=== PATIENT | female | born 1975 ===

== ENCOUNTER 2018-07-03 08:17 | Day surgery (SDC) | payer MEDICAID ==
[2018-06-29 10:25] VITALS: BMI 35.2
[2018-07-03] MEDS ORDERED: Lactated Ringer's 1,000 ML IV ONE (09:31)
[2018-07-03] MEDS ORDERED: Propofol 10 mg/ml Inj (20 ML) ONE (11:01)
[2018-07-03] MEDS ORDERED: cefTRIAXone (Rocephin) 1 gm Inj ONE (11:40)
[2018-07-03] MEDS ORDERED: Iohexol 300 100 ML IJ ONE (11:40)
[2018-07-03] MEDS ORDERED: cefTRIAXone (Rocephin) 1 gm Inj IVPB ONE (11:50)
[2018-07-03] MEDS ORDERED: Dexamethasone 4 mg/1 ml ONE (11:59)
[2018-07-03] MEDS ORDERED: Dexamethasone 4 mg/1 ml IVP PRN (12:18)
[2018-07-03] MEDS ORDERED: Lactated Ringer's 1,000 ML IV SCH (12:30)
[2018-07-03 13:25] VITALS: O2SAT 98
[2018-07-03 14:17] VITALS: RESP 18
[2018-07-03 15:31] VITALS: BP 120/70; PULSE 60; TEMP 98
--- NOTE | 2018-07-05 16:55 | RAD ---
Date of service: 07/03/2018 PROCEDURE: Intraoperative Fluoroscopy. HISTORY: CYSTOSCOPY FINDINGS: Fluoroscopic assistance was provided for cystoscopy and retrograde. Please refer to the operative report from [facility]. Total fluoroscopic time (continuous mode) utilized during the procedure 15.2 (seconds).
--- NOTE | 2018-07-25 22:45 | OP ---
PROCEDURE DATE: 07/03/2018 PREOPERATIVE DIAGNOSIS: Evaluation for right hydronephrosis. POSTOPERATIVE DIAGNOSES: Patent right renal unit, stable hydronephrosis. PROCEDURE PERFORMED ON THE PATIENT: Cystoscopy with right ureteroscopy and right retrograde pyelogram. SURGEON: Cathryn Arteaga MD DESCRIPTION OF PROCEDURE: The patient was placed on the operating room table in a dorsal lithotomy position, given general anesthesia. The area of the groin was draped and prepped in a sterile manner. At this time, using a 21 cystoscope, I entered into the bladder atraumatically. I identified the right ureteral orifice and proceeded to insert a cone-tip catheter at the lower end of the ureter. I did a retrograde pyelogram and the ureter fills out nicely. There is no significant swelling of the ureter. At the level of the renal pelvis, I could see that there was an accumulation of contrast in the area of the pelvis, probably suggesting the presence of the hydronephrosis, but I took some delayed films and I could see that the contrast of the entire ureter was emptying out rather promptly. There was a residual contrast left in the renal pelvis suggesting the presence of a chronic and stable right hydronephrosis. Once this observation was made, the patient was taken from the operating room in good condition. Cathryn Arteaga MD
== END 2018-07-03 15:30 | disposition home or self-care (01) ==
LOC: H.OPSURG 08:17
PROVIDERS: ATTEND Urology
DX: N13.39 Other hydronephrosis (principal); E11.9 Type 2 diabetes mellitus without complications; I10 Essential (primary) hypertension
CPT/HCPCS: 52005; 82948; C1758; C1769; J0696; J1100; J2001; J2405; J2704; J3010; J7120; Q9967

== ENCOUNTER 2018-09-27 09:02 | Emergency (ER) | payer MEDICAID ==
[2018-09-27 09:03] VITALS: BMI 35.2
[2018-09-27 09:07] VITALS: O2SAT 99
[2018-09-27] MEDS ORDERED: Sodium Chloride 0.9% 1,000 ML IV STA (09:29)
--- NOTE | 2018-09-27 09:43 | ED PDOC ---
HPI: Abdomen Time Seen by Provider: 09/27/18 09:11 Chief Complaint (Nursing): Abdominal Pain Chief Complaint (Provider): Abdominal Pain History Per: Patient History/Exam Limitations: no limitations Onset/Duration Of Symptoms: Hrs (Today) Current Symptoms Are (Timing): Still Present Location Of Pain/Discomfort: RUQ Associated Symptoms: Nausea. denies: Vomiting, Diarrhea, Chest Pain, Constipation, Urinary Symptoms Additional Complaint(s): 43 year old female, with a past medical history of kidney stones, HTN, and dayami betes, presents to the ED with RUQ abdominal pain and right flank pain associated with nausea that started today. Patient denies diarrhea, vomiting, weakness, chest pain, shortness of breath, urinary complaints, numbness constipation, or incontinence. Patient has a history of kidney stones and sta rosalva the pain is similar to the previous episodes. PMD: Dr. Infante Past Medical History Reviewed: Historical Data, Nursing Documentation, Vital Signs Vital Signs: Last Vital Signs Temp 98.1 F 09/27/18 09:06 Pulse 71 09/27/18 09:06 Resp 18 09/27/18 09:06 BP 157/108 H 09/27/18 09:06 Pulse Ox 99 09/27/18 09:06 - Medical History PMH: Diabetes, Gastritis, HTN, Kidney Stones Denies: Chronic Kidney Disease - Surgical History Surgical History: No Surg Hx - Family History Family History: States: Unknown Family Hx - Home Medications Home Medications: Ambulatory Orders Medication Instructions Recorded Lisinopril/Hydrochlorothiazide 12.5 - 20 mg PO DAILY 06/29/18 [Lisinopril-Hctz 20-12.5 mg Tab] metFORMIN [glucOPHAGE] 500 mg PO DAILY 06/29/18 Ciprofloxacin [Cipro] 500 mg PO BID 07/03/18 Ibuprofen [Motrin] 600 mg PO TID 7 Days tab 09/27/18 - Allergies Allergies/Adverse Reactions: Allergies Allergy/AdvReac Type Severity Reaction Status Date / Time ranitidine Allergy SWELLING Verified 09/27/18 09:18 Review of Systems ROS Statement: Except As Marked, All Systems Reviewed And Found Negative Cardiovascular: Negative for: Chest Pain Respiratory: Negative for: Shortness of Breath Gastrointestinal: Positive for: Nausea, Abdominal Pain (RUQ and flank pain). Negative for: Vomiting, Diarrhea, Constipation Genitourinary Female: Negative for: Dysuria, Incontinence, Hematuria Neurological: Negative for: Weakness, Numbness Physical Exam - Reviewed Nursing Documentation Reviewed: Yes Vital Signs Reviewed: Yes - Physical Exam Appears: Positive for: Non-toxic, No Acute Distress Head Exam: Positive for: ATRAUMATIC, NORMOCEPHALIC Skin: Positive for: Normal Color, Warm, Dry Eye Exam: Positive for: Normal appearance Neck: Positive for: Normal, Painless ROM Cardiovascular/Chest: Positive for: Regular Rate, Rhythm Respiratory: Positive for: Normal Breath Sounds. Negative for: Wheezing, Respiratory Distress Gastrointestinal/Abdominal: Positive for: Tenderness (RUQ and right flank), Guarding (mild). Negative for: Rebound Back: Positive for: R CVA Tenderness Extremity: Positive for: Normal ROM Neurologic/Psych: Positive for: Alert, Oriented. Negative for: Motor/Sensory Deficits - Laboratory Results Result Diagrams: 09/27/18 09:43 09/27/18 09:43 Interpretation Of Abn Labs: no acute - ECG ECG: Positive for: Interpreted By Me, Viewed By Me ECG Rhythm: Positive for: Normal QRS, Normal ST Segment, Sinus Rhythm O2 Sat by Pulse Oximetry: 99 (RA) Pulse Ox Interpretation: Normal - CT Scan/US ct Other Rad Studies (CT/US): Read By Radiologist Other Rad Interpretation: ovarian cyst us Other Rad Studies (CT/US): Read By Radiologist, Radiology Report Reviewed Other Rad Interpretation: ovarian cyst, hydor R - Progress ED Course And Treament: 1746: Stable. AAOx3. Pain free. Tolerated PO. Fu with pcp. Medical Decision Making Medical Decision Making: Initial Plan: --CT abd/pelvis --ECG --Beta HCG stat --CMP --Lipase stat --Troponin stat --ED urine --ED urine dipstick --CBC --PTT --Prothrombin time --Sodium chloride 1000mL IV --Toradol 15mg IV --Zofran 4mg IV Scribe Attestation: Documented by Franky Acuna acting as a scribe for Dallas Polk MD . Provider Scribe Attestation: All medical record entries made by the Scribe were at my direction and personally dictated by me. I have reviewed the chart and agree that the record accurately reflects my personal performance of the history, physical exam, medical decision making, and the department course for this patient. I have also personally directed, reviewed, and agree with the discharge instructions and disposition. Disposition - Clinical Impression Clinical Impression: Ovarian cyst, Hydronephrosis, Abdominal pain - Patient ED Disposition Is Patient to be Admitted: No - Disposition Referrals: [facility] [Outside] - 09/28/18 Disposition: Routine/Home Disposition Time: 17:49 Condition: STABLE Additional Instructions: Return if not better in 3 days. Prescriptions: Ibuprofen [Motrin] 600 mg PO TID 7 Days tab Instructions: Ovarian Cysts, Hydronephrosis in Adults, Stomach Ache and Stomach Upset Forms: [facility] ED School/Work Excuse Print Language: PRYDEINIG
[2018-09-27 09:56] LABS: BASO % 0.5 % (0.0-2.0); EOS % 0.1 % (0.0-4.0); HEMOGLOBIN 11.1 g/dL (12.0-16.0); LYMPH % 30.4 % (20.0-40.0); MEAN CELL VOLUME 76.5 fl (81.0-99.0); MEAN CORPUSCULAR HEMOGLOBIN 23.4 pg (27.0-31.0); MEAN CORPUSCULAR HGB CONC 30.6 g/dL (33.0-37.0); MEAN PLATELET VOLUME 9.1 fl (7.2-11.7); MONO # 0.4 K/uL (0.0-0.8); MONO % 5.9 % (0.0-10.0); NEUT # 4.2 K/uL (1.8-7.0); NEUT % 63.1 % (50.0-75.0); NRBC % 0.2 % (0.0-0.0); RBC 4.73 Mil/uL (3.80-5.20); RED CELL DISTRIBUTION WIDTH 18.2 % (11.5-14.5); WHITE BLOOD COUNT 6.7 K/uL (4.8-10.8)
[2018-09-27 10:06] LABS: ALB/GLOB RATIO 1.1 (1.0-2.1); ALBUMIN 3.7 g/dL (3.5-5.0); ALT/SGPT 8 U/L (9-52); AST/SGOT 17 U/L (14-36); BLOOD UREA NITROGEN 16 mg/dl (7-17); CALCIUM 8.8 mg/dL (8.4-10.2); GFR NON-AFRICAN AMERICAN > 60; LIPASE 71 U/L (23-300)
[2018-09-27 10:20] LABS: INR 0.9; PROTHROMBIN TIME 10.7 Seconds (9.8-13.1)
[2018-09-27 10:22] LABS: PARTIAL THROMBOPLASTIN TIME 30.6 Seconds (25.6-37.1)
--- NOTE | 2018-09-27 12:27 | CT ---
Date of service: 2018-09-27 10:28:22 PROCEDURE: CT Abdomen and Pelvis . HISTORY: Rule out stone. COMPARISON: None. TECHNIQUE: Contiguous axial images of the abdomen and pelvis performed without oral or intravenous contrast material. Additional 2D sagittal and coronal reformats generated. Radiation dose: Total exam DLP = 883.08 mGy-cm. This CT exam was performed using one or more of the following dose reduction techniques: Automated exposure control, adjustment of the mA and/or kV according to patient size, and/or use of iterative reconstruction technique. FINDINGS: LOWER THORAX: Heart size within range of normal. No significant pericardial effusion. There is a small hiatal hernia. Minor scarring changes seen left and middle lobe regions. LIVER: Unenhanced liver is mildly enlarged approximately 19 cm in CC no obvious hepatic mass collection or calcification GALLBLADDER AND BILE DUCTS: . Gallbladder physiologically distended. No evidence of intraluminal calculi. PANCREAS: Unremarkable. No mass. No ductal dilatation. SPLEEN: Unremarkable. No splenomegaly. ADRENALS: No adrenal lesions.. KIDNEYS AND URETERS: The right kidney is mildly atrophic with dilatation of the right renal collecting system and minimal dilatation of the proximal-mid right ureter however note obvious ureteral calculi identified.. No evidence of left-sided nephrolithiasis or hydronephrosis. BLADDER: Urinary bladder is physiologically distended. No intraluminal urinary bladder calculi.. REPRODUCTIVE: There is a elliptical shaped cystic collection of just to the right of midline abutting the dorsal margin of the uterus that measures approximately 4.0 x 3.8 x 2.6 cm.. This probably represents an adnexal cyst. Pelvic ultrasound could confirm. APPENDIX: Normal appendix best seen on coronal sequence 601 image number [id number]. No periappendiceal inflammatory changes.. BOWEL: Evaluation of the bowel is limited due to the lack of oral contrast material. The stomach is incompletely distended which in part accounts for thick-walled appearance. . Visualized loops of small bowel exhibit normal contour and caliber. No evidence of acute mechanical small bowel obstruction. There is a moderately large amount of stool seen throughout the colon consistent with mild fecal retention/constipation. Slight asymmetric wall thickening of the rectum likely due to a combination of incomplete distension peristalsis and unopacified stool however clinical correlation recommended PERITONEUM: Unremarkable. No fluid collection. No free air. There is a tiny fat containing umbilical hernia. LYMPH NODES: No significantly enlarged intra-abdominal lymph nodes are identified. Few small nonspecific bilateral inguinal lymph nodes are present. VASCULATURE: Unremarkable. No aortic aneurysm. No aortic atherosclerotic calcification or mural plaque present. BONES: Mild multilevel degenerative spondylosis of the lower thoracic and lumbar spine. OTHER FINDINGS: None. IMPRESSION: There is mild atrophy of the right kidney with mild dilatation of the right renal collecting system and proximal right ureter however no obvious ureteral calculi are identified. There is a relatively 4 cm cystic structure within the right parasagittal a pelvis dorsal to the uterus likely representing an adnexal cyst. Pelvic ultrasound followup could confirm. Findings also suggest mild constipation. Slight asymmetric wall thickening of the rectum likely due to a combination of incomplete distension peristalsis and unopacified stool however clinical correlation recommended
[2018-09-27 15:09] VITALS: BP 117/69; PULSE 70; RESP 19; TEMP 98
--- NOTE | 2018-09-27 16:47 | US ---
Date of service: 09/27/2018 HISTORY: RUQ pain COMPARISON: Same-day CT abdomen and pelvis 09/27/2018 TECHNIQUE: Sonographic evaluation of the right upper quadrant of the abdomen. FINDINGS: LIVER: Measures 14.7 cm in length. Normal echogenicity of the liver parenchyma. No mass. No intrahepatic bile duct dilatation. GALLBLADDER: Unremarkable. No gallstones. No definitive sludge noted. No gallbladder wall thickening or pericholecystic fluid. No sonographic Jaramillo sign. COMMON BILE DUCT: Measures 4.0 mm. No stones. No dilatation. PANCREAS: Limited visualization due to obscuring bowel gas.. RIGHT KIDNEY: Measures 9.7 x 5.7 x 5.2 cm in length. Normal echogenicity. No calculus, or gross mass seen. There is mild fullness to the right collecting system. Mild right hydronephrosis suggested. AORTA: The aorta is not well visualized due to obscuring bowel gas. IVC: Unremarkable. OTHER FINDINGS: None . IMPRESSION: Mild-moderate right hydronephrosis.. Please note the same-day CT abdomen and pelvic report No gallbladder pathology noted.
--- NOTE | 2018-09-27 19:07 | US ---
Date of service: 09/27/2018 HISTORY: pelvic pain COMPARISON: CT abdomen pelvis without contrast performed 09/27/18 TECHNIQUE: Real-time transabdominal pelvic ultrasound was performed. In addition a transvaginal pelvic ultrasound was necessary to better depict pelvic anatomy. FINDINGS: UTERUS: Measures 9.5 x 4.7 x 4.3 cm. Anteverted. ENDOMETRIUM: Measures 8 mm in diameter. CERVIX: Nabothian cysts. RIGHT OVARY: Measures 3.6 x 6.2 x 3.6 cm. Blood flow is demonstrated. 3.4 x 3.1 x 3.0 cm avascular anechoic mass consistent with simple cyst. Complex right adnexal cystic mass measures approximately 2.9 x 2.8 x 2.5 cm. LEFT OVARY: Measures 2.0 x 1.7 x 2.2 cm. Blood flow is demonstrated. FREE FLUID: No significant free fluid noted. OTHER FINDINGS: None. IMPRESSION: Complex right adnexal cystic mass measures 2.9 x 2.8 x 2.5 cm, possibly hemorrhagic cyst. 3.4 x 3.1 x 3.0 cm simple appearing cyst. Correlate clinically. Recommend 6 week ultrasound follow-up in order to assess for complete resolution.
--- NOTE | 2018-09-28 05:55 | CARD ---
APPROVED REPORT Date of service: 09/27/2018 EKG Measurement Heart [id number] <Conclusion> Normal sinus rhythm Normal ECG
== END 2018-09-27 18:14 | disposition home or self-care (01) ==
LOC: SUPCPDRO 09:02 → H.ER 09:02
DX: R10.11 Right upper quadrant pain (principal); N13.2 Hydronephrosis with renal and ureteral calculous obstruction; N83.201 Unspecified ovarian cyst, right side; E11.9 Type 2 diabetes mellitus without complications; I10 Essential (primary) hypertension; Z79.84 Long term (current) use of oral hypoglycemic drugs
CPT/HCPCS: 74176; 76705; 76830; 76856; 80053; 81025; 83690; 84484; 84702; 85025; 85610; 85730; 93005; 96374; 99284; J1885; J2405; J7030